=== PATIENT | female | born 1975 | race Caucasian/White ===

== ENCOUNTER 2016-09-13 21:35 | Emergency (ER) | payer MEDICAID, OTHER ==
[~2016-09-13] VITALS: Ht 149.9 cm; Wt 99.8 kg
[~2016-09-13 21:35] MED LIST: ALBMDI INH; ALPR1TAB2 PO; ALPR1TAB7 PO; AMYL1CAP58 PO; CALC500T3 PO; CARB200T PO; CHOL4PAC20 PO; CYCL-10 PO; CYM30 PO; DIVA250T34 PO; DIVA500T7 PO; FENO135C PO; FLUT1DIS INH; GLIM2TAB2 PO; HYDR-3924 PO; LEVE1000 PO; LEVE500T13 PO; LOPE2CAP PO; MULT PO; NORT50CA5 PO; OMEG1CAP55 PO; ONDA4TAB22 PO; POTA20TA83 PO; PRO40 PO; SEE LIST; TOPI100T11 PO; VITA1CAP PO
[2016-09-13 21:42] VITALS: BP_SYST 103
[2016-09-13 22:23] LABS: BASOPHILS % (AUTO) 0.6 % (0.0-2.0); EOSINOPHILS # (AUTO) 0.1 K/uL (0.0-0.4); EOSINOPHILS % (AUTO) 2.1 % (0.0-4.0); HEMATOCRIT 39.9 % (36-48); HEMOGLOBIN 13.1 g/dL (12.0-16.0); LYMPHOCYTES # (AUTO) 3.1 K/uL (1.0-5.5); LYMPHOCYTES % (AUTO) 44.2 % (20.5-51.5); MEAN CORPUSCULAR HEMOGLOBIN 31 pg (27-31); MEAN CORPUSCULAR HGB CONC 33 % (32-36); MEAN CORPUSCULAR VOLUME 94 fL (79.0-98.0); MONOCYTES # (AUTO) 0.5 K/uL (0.0-1.0); MONOCYTES % (AUTO) 7.6 % (1.7-9.3); NEUTROPHILS # (AUTO) 3.3 K/uL (1.8-7.7); NEUTROPHILS % (AUTO) 45.5 % (40.0-70.0); PLATELET COUNT (AUTO) 231 K/uL (130-430); RED BLOOD CELL COUNT(AUTO) 4.26 MIL/uL (4.2-6.2); RED CELL DISTRIBUTION WIDTH 12.4 % (9.0-15.0)
[2016-09-13 22:29] LABS: CALCIUM 8.6 mg/dL (8.4-11.0); CREATININE 0.61 mg/dL (0.55-1.30); POTASSIUM 3.6 mmol/L (3.5-5.1)
[2016-09-13 22:36] LABS: ALBUMIN 3.5 g/dL (3.4-4.8); TOTAL BILIRUBIN 0.2 mg/dL (0.0-1.0); TOTAL PROTEIN, SERUM 7.6 g/dL (6.4-8.3)
[2016-09-13] MEDS ORDERED: KETOROLAC TROMETHAMINE 30 MG VIAL IVP ONE (23:00)
[2016-09-13 23:38] LABS: BILIRUBIN,URINE NEGATIVE (NEGATIVE); BLOOD, URINE NEGATIVE (NEGATIVE); CLARITY/URINE CLEAR (CLEAR); COLOR,URINE YELLOW (YELLOW); GLUCOSE,URINE NEGATIVE (NEGATIVE); KETONES,URINE 1+ (NEGATIVE); LEUKOCYTE ESTERASE ,URINE NEGATIVE (NEGATIVE); NITRITE, URINE NEGATIVE (NEGATIVE); PROTEIN URINE NEGATIVE (NEGATIVE); UROBILINOGEN,URINE 0.2 (0.2-1.0)
[2016-09-14 00:15] VITALS: BP_SYST 108
== END 2016-09-14 00:15 | disposition home or self-care (01) ==
LOC: SED 21:35
DX: G40.909 Epilepsy, unspecified, not intractable, without status epilepticus (principal); J45.909 Unspecified asthma, uncomplicated; E11.9 Type 2 diabetes mellitus without complications; I10 Essential (primary) hypertension; Z88.0 Allergy status to penicillin; Z88.5 Allergy status to narcotic agent; Z88.8 Allergy status to other drugs, medicaments and biological substances; Z88.2 Allergy status to sulfonamides; Z91.040 Latex allergy status; Z85.3 Personal history of malignant neoplasm of breast; Z85.42 Personal history of malignant neoplasm of other parts of uterus
CPT/HCPCS: 36415; 80053; 81003; 85025; 96374; 99284; J1885

== ENCOUNTER 2020-11-01 03:15 | Inpatient (IN) | payer MEDICAID, SELFPAY ==
[~2020-11-01] VITALS: Ht 149.9 cm; Wt 97.1 kg
[2020-11-01 03:15] VITALS: BP_SYST 118
[~2020-11-01 03:15] MED LIST changes: -CYCL-10 PO; +CYCL10TA24 PO; +DIVA-74 PO; -DIVA500T7 PO; +GLIM2TAB PO; -GLIM2TAB2 PO; -HYDR-3924 PO; +HYDR-4497 PO; -LEVE500T13 PO; +LEVE500T9 PO
[2020-11-01] MEDS ORDERED: PERC10 PO (03:28)
[2020-11-01] MEDS ORDERED: NEU300 PO (03:29)
[2020-11-01] MEDS ORDERED: MECL25TA3 PO (03:36)
[2020-11-01] MEDS ORDERED: FLUO20CA41 PO (03:36)
[2020-11-01] MEDS ORDERED: METF-379 PO (03:36)
[2020-11-01] MEDS ORDERED: METO25TA6 PO (03:39)
[2020-11-01] MEDS ORDERED: NACL 0.9% 1,000 ML IV ONE (03:45)
[2020-11-01 03:51] LABS: BASOPHILS # (AUTO) 0.1 K/uL (0.0-0.2); BASOPHILS % (AUTO) 0.6 % (0.0-2.0); HEMOGLOBIN 14.3 g/dL (12.0-16.0); LYMPHOCYTES # (AUTO) 2.4 K/uL (1.0-5.5); LYMPHOCYTES % (AUTO) 15.4 % (20.5-51.5); MEAN CORPUSCULAR HEMOGLOBIN 31 pg (27-31); MEAN CORPUSCULAR HGB CONC 32 % (32-36); MEAN CORPUSCULAR VOLUME 97 fL (79.0-98.0); MONOCYTES # (AUTO) 1.5 K/uL (0.0-1.0); MONOCYTES % (AUTO) 9.5 % (1.7-9.3); NEUTROPHILS # (AUTO) 11.5 K/uL (1.8-7.7); NEUTROPHILS % (AUTO) 74.5 % (40.0-70.0); PLATELET COUNT (AUTO) 281 K/uL (130-430); RED BLOOD CELL COUNT(AUTO) 4.56 MIL/uL (4.2-6.2); RED CELL DISTRIBUTION WIDTH 14.5 % (9.0-15.0); WHITE BLOOD COUNT (AUTO) 15.5 K/uL (4.8-10.8)
[2020-11-01 03:57] LABS: CREATININE 1.99 mg/dL (0.55-1.30)
[2020-11-01] MEDS ORDERED: DOCUSATE SODIUM 100 MG CAPSULE PO PRN (09:30)
[2020-11-01] MEDS ORDERED: ACETAMINOPHEN 325 MG TABLET PO PRN (09:30)
[2020-11-01] MEDS ORDERED: ONDANSETRON HCL 4 MG/2 ML VIAL IVP PRN (09:30)
[2020-11-01] MEDS ORDERED: PIPERACILLIN/TAZOBACTAM 3.375 GM/VIAL (ZOSYN) IV ONE (09:47)
[2020-11-01 09:59] LABS: BASOPHILS # (AUTO) 0.1 K/uL (0.0-0.2); BASOPHILS % (AUTO) 0.6 % (0.0-2.0); HEMATOCRIT 39.1 % (36-48); HEMOGLOBIN 12.8 g/dL (12.0-16.0); LYMPHOCYTES # (AUTO) 2.4 K/uL (1.0-5.5); MEAN CORPUSCULAR HEMOGLOBIN 31 pg (27-31); MEAN CORPUSCULAR HGB CONC 33 % (32-36); MEAN CORPUSCULAR VOLUME 96 fL (79.0-98.0); MONOCYTES # (AUTO) 1.6 K/uL (0.0-1.0); MONOCYTES % (AUTO) 9.5 % (1.7-9.3); NEUTROPHILS # (AUTO) 12.9 K/uL (1.8-7.7); NEUTROPHILS % (AUTO) 75.9 % (40.0-70.0); PLATELET COUNT (AUTO) 252 K/uL (130-430); RED BLOOD CELL COUNT(AUTO) 4.09 MIL/uL (4.2-6.2); RED CELL DISTRIBUTION WIDTH 14.5 % (9.0-15.0)
[2020-11-01 10:13] LABS: CALCIUM 8.7 mg/dL (8.4-11.0); CREATININE 1.4 mg/dL (0.55-1.30); POTASSIUM 3.6 mmol/L (3.5-5.1)
[2020-11-01] MEDS: LORazepam 2 MG/ML VIAL IVP PRN (10:24)
[2020-11-01 10:29] LABS: ALBUMIN 2.8 g/dL (3.4-4.8); FREE T4 (FREE THYROXINE) 1.2 ng/dl (0.8-1.5); PHOSPHORUS 3.8 mg/dL (2.7-4.5); THYROID STIMULATING HORMONE 0.23 uIu/mL (0.36-3.74); TOTAL BILIRUBIN 0.4 mg/dL (0.0-1.0)
[2020-11-01] MEDS ORDERED: PIPERACILLIN/TAZO 3.375/DEX-IS 50 ML IV ONE (10:45)
[2020-11-01] MEDS: NACL 0.9% 1,000 ML IV SCH ×2 (10:46→20:18)
[2020-11-01 10:55] LABS: CKMB RELATIVE INDEX 0.2 (0.0-2.9); CREATINE KINASE MB 6.4 ng/mL (0-3.6)
[2020-11-01 13:09] VITALS: BP_SYST 140
[2020-11-01 14:16] VITALS: BP_SYST 140
[2020-11-01 15:48] VITALS: BP_SYST 149
[2020-11-01] MEDS ORDERED: CYCLOBENZAPRINE HCL 10 MG TABLET (FLEXERIL) PO PRN (17:15)
[2020-11-01] MEDS ORDERED: FLUoxetine HCL 20 MG CAPSULE (PROzac) PO ONE (17:15)
[2020-11-01] MEDS ORDERED: METOPROLOL TARTRATE 25 MG TABLET PO ONE (17:15)
[2020-11-01] MEDS: PIPERACILLIN/TAZO 3.375/DEX-IS 50 ML IV SCH (17:28)
[2020-11-01] MEDS ORDERED: MAGNESIUM SULFATE 4 GM in D5W 250 ML IV ONE (18:00)
[2020-11-01 20:00] VITALS: BP_SYST 152
[2020-11-01] MEDS: metFORMIN HCL 500 MG TABLET PO SCH (21:00)
[2020-11-01] MEDS: ALPRAZolam 0.25 MG TABLET PO SCH (23:06)
[2020-11-01] MEDS: DIVALPROEX SODIUM 500 MG TABLET( DEPAKOTE) PO SCH (23:06)
[2020-11-01] MEDS: levETIRAcetam 500 MG TABLET PO SCH (23:07)
[2020-11-01] MEDS: MECLIZINE HCL 25 MG TABLET (ANITVERT) PO SCH (23:07)
[2020-11-01] MEDS: GABAPENTIN 300 MG CAPSULE PO SCH (23:07)
[2020-11-02] VITALS: BP_SYST 153
[2020-11-02] MEDS: PIPERACILLIN/TAZO 3.375/DEX-IS 50 ML IV SCH ×3 (03:16→17:22)
[2020-11-02] MEDS: NACL 0.9% 1,000 ML IV SCH ×2 (03:19→13:55)
[2020-11-02 07:02] LABS: BASOPHILS # (AUTO) 0.2 K/uL (0.0-0.2); BASOPHILS % (AUTO) 0.9 % (0.0-2.0); EOSINOPHILS # (AUTO) 0.1 K/uL (0.0-0.4); EOSINOPHILS % (AUTO) 0.3 % (0.0-4.0); HEMATOCRIT 34.1 % (36-48); HEMOGLOBIN 11.4 g/dL (12.0-16.0); LYMPHOCYTES # (AUTO) 1.9 K/uL (1.0-5.5); LYMPHOCYTES % (AUTO) 10.8 % (20.5-51.5); MEAN CORPUSCULAR HEMOGLOBIN 32 pg (27-31); MEAN CORPUSCULAR HGB CONC 34 % (32-36); MEAN CORPUSCULAR VOLUME 95 fL (79.0-98.0); MONOCYTES # (AUTO) 0.8 K/uL (0.0-1.0); MONOCYTES % (AUTO) 4.7 % (1.7-9.3); NEUTROPHILS # (AUTO) 14.8 K/uL (1.8-7.7); NEUTROPHILS % (AUTO) 83.3 % (40.0-70.0); PLATELET COUNT (AUTO) 196 K/uL (130-430); RED CELL DISTRIBUTION WIDTH 14.8 % (9.0-15.0); WHITE BLOOD COUNT (AUTO) 17.7 K/uL (4.8-10.8)
[2020-11-02 07:39] LABS: CALCIUM 8.5 mg/dL (8.4-11.0); CREATININE 0.77 mg/dL (0.55-1.30); POTASSIUM 3.1 mmol/L (3.5-5.1)
[2020-11-02 08:47] VITALS: BP_SYST 157
[2020-11-02 09:20] LABS: CKMB RELATIVE INDEX 0.1 (0.0-2.9); CREATINE KINASE MB 1.7 ng/mL (0-3.6)
[2020-11-02] MEDS: ALPRAZolam 0.25 MG TABLET PO SCH ×2 (09:20→20:48)
[2020-11-02] MEDS: GABAPENTIN 300 MG CAPSULE PO SCH ×3 (09:20→20:47)
[2020-11-02] MEDS: levETIRAcetam 500 MG TABLET PO SCH ×2 (09:20→20:47)
[2020-11-02] MEDS: FLUoxetine HCL 20 MG CAPSULE (PROzac) PO SCH (09:20)
[2020-11-02] MEDS: MECLIZINE HCL 25 MG TABLET (ANITVERT) PO SCH ×3 (09:20→20:49)
[2020-11-02] MEDS: metFORMIN HCL 500 MG TABLET PO SCH ×2 (09:21→20:48)
[2020-11-02] MEDS: DIVALPROEX SODIUM 500 MG TABLET( DEPAKOTE) PO SCH ×2 (09:21→20:48)
[2020-11-02] MEDS: METOPROLOL TARTRATE 25 MG TABLET PO SCH (09:21)
[2020-11-02] MEDS ORDERED: KCL 40 mEq in 100 mL (PREMIX) 100 ML IV ONE (11:00)
[2020-11-02 12:06] VITALS: BP_SYST 128
[2020-11-02 16:08] VITALS: BP_SYST 127
[2020-11-02] MEDS: OXYCODONE/ACETAMINOPHEN *10*mg/325 mg TABLET PO PRN (17:17)
[2020-11-02 20:00] VITALS: BP_SYST 118
[2020-11-03] VITALS (7 sets, daily range): BP systolic 121–151
[2020-11-03] MEDS: PIPERACILLIN/TAZO 3.375/DEX-IS 50 ML IV SCH ×3 (01:39→17:02)
[2020-11-03] MEDS: NACL 0.9% 1,000 ML IV SCH ×2 (01:40→17:04)
[2020-11-03] MEDS: LORazepam 2 MG/ML VIAL IVP PRN (03:35)
[2020-11-03 03:48] LABS: BILIRUBIN,URINE NEGATIVE (NEGATIVE); CLARITY/URINE SL CLOUDY (CLEAR); COLOR,URINE YELLOW (YELLOW); GLUCOSE,URINE NEGATIVE (NEGATIVE); KETONES,URINE 1+ (NEGATIVE); LEUKOCYTE ESTERASE ,URINE NEGATIVE (NEGATIVE); NITRITE, URINE NEGATIVE (NEGATIVE); PROTEIN URINE 2+ (NEGATIVE); UROBILINOGEN,URINE 0.2 (0.2-1.0)
[2020-11-03 03:50] LABS: BLOOD, URINE TRACE (NEGATIVE)
[2020-11-03 03:59] LABS: BARBITURATE, URINE NEGATIVE (NEG <=200); BENZODIAZEPINE, URINE POSITIVE (NEG <=150); CANNABINOID, URINE NEGATIVE (NEG <=50); COCAINE, URINE NEGATIVE (NEG <=150); METHAMPHETAMINES SCREEN,URINE NEGATIVE (NEG <=500); OPIATE, URINE NEGATIVE (NEG <=100); PHENCYCLIDINE SCREEN,URINE NEGATIVE (NEG <=25); UR TRICYCLIC ANTIDEPRESSANTS POSITIVE (NEG <=300); URINE AMPHETAMINE NEGATIVE (NEG <=500); URINE METHADONE NEGATIVE (NEG <=200); URINE OXYCODONE SCREEN POSITIVE (NEG <=100); URINE PROPOXYPHENE SCREEN NEGATIVE (NEG <=300)
[2020-11-03 04:06] LABS: BACTERIA,URINE FEW /HPF (None Seen); WBC,URINE 0-3 /HPF (0-3)
[2020-11-03 06:56] LABS: BASOPHILS # (AUTO) 0.1 K/uL (0.0-0.2); BASOPHILS % (AUTO) 0.3 % (0.0-2.0); EOSINOPHILS # (AUTO) 0.1 K/uL (0.0-0.4); EOSINOPHILS % (AUTO) 0.5 % (0.0-4.0); HEMATOCRIT 31.6 % (36-48); HEMOGLOBIN 10.3 g/dL (12.0-16.0); LYMPHOCYTES # (AUTO) 1.6 K/uL (1.0-5.5); MEAN CORPUSCULAR HEMOGLOBIN 32 pg (27-31); MEAN CORPUSCULAR HGB CONC 33 % (32-36); MEAN CORPUSCULAR VOLUME 97 fL (79.0-98.0); MONOCYTES # (AUTO) 0.9 K/uL (0.0-1.0); MONOCYTES % (AUTO) 4.8 % (1.7-9.3); NEUTROPHILS # (AUTO) 15.3 K/uL (1.8-7.7); NEUTROPHILS % (AUTO) 85.4 % (40.0-70.0); PLATELET COUNT (AUTO) 190 K/uL (130-430); RED BLOOD CELL COUNT(AUTO) 3.27 MIL/uL (4.2-6.2); RED CELL DISTRIBUTION WIDTH 14.6 % (9.0-15.0); WHITE BLOOD COUNT (AUTO) 17.9 K/uL (4.8-10.8)
[2020-11-03] MEDS: levETIRAcetam 500 MG TABLET PO SCH ×2 (08:58→21:27)
[2020-11-03] MEDS: FLUoxetine HCL 20 MG CAPSULE (PROzac) PO SCH (08:59)
[2020-11-03] MEDS: ALPRAZolam 0.25 MG TABLET PO SCH ×2 (08:59→21:27)
[2020-11-03] MEDS: METOPROLOL TARTRATE 25 MG TABLET PO SCH (09:00)
[2020-11-03] MEDS: DIVALPROEX SODIUM 500 MG TABLET( DEPAKOTE) PO SCH ×2 (09:00→21:27)
[2020-11-03] MEDS: GABAPENTIN 300 MG CAPSULE PO SCH ×3 (09:00→21:27)
[2020-11-03] MEDS: MECLIZINE HCL 25 MG TABLET (ANITVERT) PO SCH ×3 (09:01→21:27)
[2020-11-03] MEDS: metFORMIN HCL 500 MG TABLET PO SCH ×2 (09:01→21:27)
[2020-11-03 09:10] LABS: CALCIUM 8.1 mg/dL (8.4-11.0); CREATININE 0.74 mg/dL (0.55-1.30); POTASSIUM 3.1 mmol/L (3.5-5.1); TOTAL BILIRUBIN 0.2 mg/dL (0.0-1.0)
[2020-11-03 09:11] LABS: PHOSPHORUS 1.5 mg/dL (2.7-4.5)
[2020-11-03] MEDS ORDERED: POTASSIUM CHLORIDE 20 MEQ TAB.PRT.SR PO ONE (15:45)
[2020-11-03] MEDS ORDERED: IPRATROPIUM/ALBUTEROL SULFATE 3 ML AMPUL.NEB (DUONEB) INH PRN (17:45)
[2020-11-04] MEDS: PIPERACILLIN/TAZO 3.375/DEX-IS 50 ML IV SCH (01:52)
[2020-11-04] MEDS: NACL 0.9% 1,000 ML IV SCH (03:41)
[2020-11-04 06:52] LABS: BASOPHILS # (AUTO) 0.1 K/uL (0.0-0.2); BASOPHILS % (AUTO) 0.6 % (0.0-2.0); EOSINOPHILS # (AUTO) 0.2 K/uL (0.0-0.4); EOSINOPHILS % (AUTO) 1.6 % (0.0-4.0); HEMATOCRIT 31.4 % (36-48); HEMOGLOBIN 10.3 g/dL (12.0-16.0); LYMPHOCYTES # (AUTO) 2.3 K/uL (1.0-5.5); MEAN CORPUSCULAR HEMOGLOBIN 32 pg (27-31); MEAN CORPUSCULAR HGB CONC 33 % (32-36); MEAN CORPUSCULAR VOLUME 97 fL (79.0-98.0); MONOCYTES # (AUTO) 0.8 K/uL (0.0-1.0); MONOCYTES % (AUTO) 6.7 % (1.7-9.3); NEUTROPHILS # (AUTO) 8.7 K/uL (1.8-7.7); NEUTROPHILS % (AUTO) 72.1 % (40.0-70.0); PLATELET COUNT (AUTO) 189 K/uL (130-430); RED BLOOD CELL COUNT(AUTO) 3.25 MIL/uL (4.2-6.2); RED CELL DISTRIBUTION WIDTH 14.6 % (9.0-15.0); WHITE BLOOD COUNT (AUTO) 12.1 K/uL (4.8-10.8)
[2020-11-04 06:58] LABS: CALCIUM 8.2 mg/dL (8.4-11.0); CREATININE 0.49 mg/dL (0.55-1.30); PHOSPHORUS 1.5 mg/dL (2.7-4.5)
[2020-11-04 08:00] VITALS: BP_SYST 138
[2020-11-04 08:31] LABS: POTASSIUM 2.6 mmol/L (3.5-5.1)
[2020-11-04] MEDS ORDERED: POTASSIUM CHLORIDE 20 MEQ/PKT PACKET PO ONE (08:45)
[2020-11-04] MEDS ORDERED: MAGNESIUM SULFATE 50 ML IV PRN (09:45)
[2020-11-04] MEDS ORDERED: ONDANSETRON HCL 4 MG/2 ML VIAL IVP PRN (09:45)
[2020-11-04] MEDS ORDERED: DOCUSATE SODIUM 100 MG CAPSULE PO PRN (09:45)
[2020-11-04] MEDS ORDERED: MUPIROCIN 2% TOPICAL OINTMENT 22 GM NS PRN (09:45)
[2020-11-04] MEDS ORDERED: POTASSIUM CHLORIDE 20 MEQ TAB.PRT.SR PO PRN (09:45)
[2020-11-04] MEDS ORDERED: ACETAMINOPHEN 325 MG TABLET PO PRN (09:45)
[2020-11-04] MEDS: DIVALPROEX SODIUM 500 MG TABLET( DEPAKOTE) PO SCH ×2 (09:53→21:12)
[2020-11-04] MEDS: metFORMIN HCL 500 MG TABLET PO SCH ×2 (09:53→21:11)
[2020-11-04] MEDS: ALPRAZolam 0.25 MG TABLET PO SCH ×2 (09:53→21:11)
[2020-11-04] MEDS: GABAPENTIN 300 MG CAPSULE PO SCH ×3 (09:53→21:12)
[2020-11-04] MEDS: levETIRAcetam 500 MG TABLET PO SCH ×2 (09:54→21:12)
[2020-11-04] MEDS: FLUoxetine HCL 20 MG CAPSULE (PROzac) PO SCH (09:54)
[2020-11-04] MEDS: MECLIZINE HCL 25 MG TABLET (ANITVERT) PO SCH ×3 (09:54→21:12)
[2020-11-04] MEDS: METOPROLOL TARTRATE 25 MG TABLET PO SCH (09:59)
[2020-11-04 12:00] VITALS: BP_SYST 122
[2020-11-04 16:00] VITALS: BP_SYST 130
[2020-11-04] MEDS ORDERED: LORazepam 2 MG/ML VIAL IM ONE (18:00)
[2020-11-04 19:30] VITALS: BP_SYST 128
[2020-11-04 20:00] VITALS: BP_SYST 132
[2020-11-04] MEDS: HEPARIN SODIUM,PORCINE 5,000 UNITS/ML VIAL SUBCUT SCH (21:21)
[2020-11-05] MEDS: NACL 0.9% 1,000 ML IV SCH ×2 (01:24→05:42)
[2020-11-05 07:15] LABS: BASOPHILS # (AUTO) 0.1 K/uL (0.0-0.2); BASOPHILS % (AUTO) 0.6 % (0.0-2.0); EOSINOPHILS # (AUTO) 0.3 K/uL (0.0-0.4); EOSINOPHILS % (AUTO) 2.5 % (0.0-4.0); HEMATOCRIT 32.9 % (36-48); HEMOGLOBIN 10.8 g/dL (12.0-16.0); LYMPHOCYTES % (AUTO) 32.2 % (20.5-51.5); MEAN CORPUSCULAR HEMOGLOBIN 32 pg (27-31); MEAN CORPUSCULAR HGB CONC 33 % (32-36); MEAN CORPUSCULAR VOLUME 96 fL (79.0-98.0); MONOCYTES % (AUTO) 8.2 % (1.7-9.3); NEUTROPHILS % (AUTO) 56.5 % (40.0-70.0); PLATELET COUNT (AUTO) 217 K/uL (130-430); RED BLOOD CELL COUNT(AUTO) 3.43 MIL/uL (4.2-6.2); RED CELL DISTRIBUTION WIDTH 14.7 % (9.0-15.0); WHITE BLOOD COUNT (AUTO) 12.3 K/uL (4.8-10.8)
[2020-11-05 07:51] LABS: ALBUMIN 2.1 g/dL (3.4-4.8); CALCIUM 8.7 mg/dL (8.4-11.0); CREATININE 0.57 mg/dL (0.55-1.30); TOTAL BILIRUBIN 0.2 mg/dL (0.0-1.0)
[2020-11-05 08:00] VITALS: BP_SYST 119
[2020-11-05 08:30] LABS: POTASSIUM 2.8 mmol/L (3.5-5.1)
[2020-11-05 08:31] LABS: BILIRUBIN,DIRECT 0.2 mg/dL (0.0-0.3)
[2020-11-05] MEDS: ALPRAZolam 0.25 MG TABLET PO SCH (08:35)
[2020-11-05] MEDS: METOPROLOL TARTRATE 25 MG TABLET PO SCH (08:36)
[2020-11-05] MEDS: FLUoxetine HCL 20 MG CAPSULE (PROzac) PO SCH (08:37)
[2020-11-05] MEDS: GABAPENTIN 300 MG CAPSULE PO SCH ×2 (08:37→15:09)
[2020-11-05] MEDS: levETIRAcetam 500 MG TABLET PO SCH (08:37)
[2020-11-05] MEDS: metFORMIN HCL 500 MG TABLET PO SCH (08:37)
[2020-11-05] MEDS: MECLIZINE HCL 25 MG TABLET (ANITVERT) PO SCH ×2 (08:38→15:09)
[2020-11-05] MEDS: DIVALPROEX SODIUM 500 MG TABLET( DEPAKOTE) PO SCH (08:38)
[2020-11-05] MEDS: HEPARIN SODIUM,PORCINE 5,000 UNITS/ML VIAL SUBCUT SCH (08:39)
[2020-11-05] MEDS ORDERED: K PHOS 30 MM in NS 250 ML IV ONE (08:45)
[2020-11-05] MEDS: PIPERACILLIN/TAZO 3.375/DEX-IS 50 ML IV SCH ×2 (10:11→17:12)
[2020-11-05] MEDS ORDERED: MAGNESIUM SULFATE 1 GM/2 ML VIAL IVP ONE (10:45)
[2020-11-05] MEDS ORDERED: MAGNESIUM SULFATE/D5W 100 ML IV SCH (11:00)
[2020-11-05 12:30] VITALS: BP_SYST 132
[2020-11-05] MEDS: OXYCODONE/ACETAMINOPHEN *10*mg/325 mg TABLET PO PRN (13:45)
[2020-11-05] MEDS ORDERED: BALSAM PERU/CASTOR OIL 60 GM OINT...G. TP ONE (15:00)
[2020-11-05 16:06] VITALS: BP_SYST 112
[2020-11-05 16:52] LABS: CALCIUM 8.7 mg/dL (8.4-11.0); CREATININE 0.66 mg/dL (0.55-1.30); PHOSPHORUS 3.2 mg/dL (2.7-4.5); POTASSIUM 3.9 mmol/L (3.5-5.1)
[2020-11-05] MEDS ORDERED: DOXY100C PO (17:17)
[2020-11-05 18:03] VITALS: BP_SYST 112
[2020-11-06] MEDS ORDERED: BALSAM PERU/CASTOR OIL 60 GM OINT...G. TP SCH (09:00)
== END 2020-11-05 18:47 | disposition home or self-care (01) | DRG 720 ==
LOC: SED 03:15 → STU 09:05
PROVIDERS: ADMIT General Practice; ATTEND General Practice
PROC: 05HY33Z Insertion of Infusion Device into Upper Vein, Percutaneous Approach (ICD-10-PCS; 2020-11-02)
PROC: B54MZZA Ultrasonography of Right Upper Extremity Veins, Guidance (ICD-10-PCS; 2020-11-02)
PROC: 05HY33Z Insertion of Infusion Device into Upper Vein, Percutaneous Approach (ICD-10-PCS; principal; 2020-11-04)
PROC: B54MZZA Ultrasonography of Right Upper Extremity Veins, Guidance (ICD-10-PCS; 2020-11-04)
DX: A41.9 Sepsis, unspecified organism (principal); N17.0 Acute kidney failure with tubular necrosis; J69.0 Pneumonitis due to inhalation of food and vomit; I50.43 Acute on chronic combined systolic (congestive) and diastolic (congestive) heart failure; E43 Unspecified severe protein-calorie malnutrition; E83.39 Other disorders of phosphorus metabolism; M62.82 Rhabdomyolysis; G40.909 Epilepsy, unspecified, not intractable, without status epilepticus; E87.0 Hyperosmolality and hypernatremia; E83.42 Hypomagnesemia; E66.9 Obesity, unspecified; E87.6 Hypokalemia; E11.9 Type 2 diabetes mellitus without complications; R09.02 Hypoxemia; I10 Essential (primary) hypertension; J45.909 Unspecified asthma, uncomplicated; K21.9 Gastro-esophageal reflux disease without esophagitis; R74.01 Elevation of levels of liver transaminase levels; Z20.822 Contact with and (suspected) exposure to COVID-19; Z68.41 Body mass index [BMI] 40.0-44.9, adult; Z88.0 Allergy status to penicillin; Z88.2 Allergy status to sulfonamides; Z88.5 Allergy status to narcotic agent; Z88.8 Allergy status to other drugs, medicaments and biological substances; Z91.041 Radiographic dye allergy status; Z91.040 Latex allergy status; Z79.899 Other long term (current) drug therapy; Z85.3 Personal history of malignant neoplasm of breast; Z85.42 Personal history of malignant neoplasm of other parts of uterus; Z85.41 Personal history of malignant neoplasm of cervix uteri; Z86.73 Personal history of transient ischemic attack (TIA), and cerebral infarction without residual deficits; I25.2 Old myocardial infarction
CPT/HCPCS: 36415; 36600; 70450-TC; 71045; 76376; 76700-TC; 76770; 80048; 80053; 80061; 80076; 80164; 80307; 81000; 82150; 82550; 82553; 82803-TC; 83036; 83690; 83735; 83880; 84100; 84439; 84443; 85025; 87040-TC; 92610-GN; 93005; 95816; 96361; 96365; 99285; G0378; G0482; J1644; J2060; J2543; J3475; J3480; J7050; J7060; J8597

== ENCOUNTER 2022-08-17 14:21 | Inpatient (IN) | payer MEDICAID ==
[~2022-08-17] VITALS: Ht 154.9 cm; Wt 95.3 kg
[~2022-08-17 14:21] MED LIST changes: -ALBMDI INH; -ALPR1TAB2 PO; -AMYL1CAP58 PO; -CALC500T3 PO; -CARB200T PO; -CHOL4PAC20 PO; -CYM30 PO; -DIVA-74 PO; +DOXY100C PO; -FENO135C PO; +FLUO20CA42 PO; -FLUT1DIS INH; -GLIM2TAB PO; -HYDR-4497 PO; -LEVE500T9 PO; -LOPE2CAP PO; +MECL25TA3 PO; +METF-379 PO; +METO25TA6 PO; -MULT PO; +NEU300 PO; -NORT50CA5 PO; -OMEG1CAP55 PO; -ONDA4TAB22 PO; -POTA20TA83 PO; -PRO40 PO; -SEE LIST; -TOPI100T11 PO; -VITA1CAP PO
--- NOTE | 2022-08-17 14:30 | NUR ---
PT BIBA AWAKE And ALTERED. AOX1. NO SOB OR DISTRESS. PT COMING FROM HOME, HER SOCIAOL WORKER VISITED HER AND NOTIVE RIGHT FACIAL DROOP AND WAS NOT ACTING NORMAL. PT SLOW TO RESPOND TO QUESTION. LAST KNOW WELL WAS 2 DAYS AGO ACCORDING TO HER SOCAIL WORKER. PT HAS HX OF HTN, HLD.
--- NOTE | 2022-08-17 14:31 | NUR ---
MD DR ARIAS AT BEDSIDE
--- NOTE | 2022-08-17 14:32 | NUR ---
MD DR ARIAS CALLED CODE STROKE
[2022-08-17] MEDS ORDERED: iohexoL 350 mgI/mL, 100 ML INFUS..BTL IV ONE (14:41)
--- NOTE | 2022-08-17 14:56 | NUR ---
PT ON TELEMEDICINE CALL WITH NEURO. +FOLLOWING DIRECTIONS
[2022-08-17 15:08] VITALS: BP_SYST 127
[2022-08-17 15:08] LABS: BASOPHILS # (AUTO) 0.1 K/uL (0.0-0.2); BASOPHILS % (AUTO) 0.7 % (0.0-2.0); EOSINOPHILS # (AUTO) 0.2 K/uL (0.0-0.4); EOSINOPHILS % (AUTO) 2.1 % (0.0-4.0); HEMATOCRIT 42.5 % (36-48); HEMOGLOBIN 14.3 g/dL (12.0-16.0); LYMPHOCYTES # (AUTO) 4.7 K/uL (1.0-5.5); LYMPHOCYTES % (AUTO) 55.4 % (20.5-51.5); MEAN CORPUSCULAR HEMOGLOBIN 33 pg (27-31); MEAN CORPUSCULAR HGB CONC 34 % (32-36); MEAN CORPUSCULAR VOLUME 97 fL (79.0-98.0); MONOCYTES % (AUTO) 11.4 % (1.7-9.3); NEUTROPHILS # (AUTO) 2.6 K/uL (1.8-7.7); NEUTROPHILS % (AUTO) 30.4 % (40.0-70.0); PLATELET COUNT (AUTO) 311 K/uL (130-430); RED BLOOD CELL COUNT(AUTO) 4.38 MIL/uL (4.2-6.2); RED CELL DISTRIBUTION WIDTH 13.9 % (9.0-15.0); WHITE BLOOD COUNT (AUTO) 8.4 K/uL (4.8-10.8)
--- NOTE | 2022-08-17 15:21 | NUR ---
PT SCORED 12 ON [facility] STROKE SCALE
[2022-08-17 15:26] LABS: ALANINE AMINOTRANSFERASE 21 U/L (12-78); ALBUMIN 3.9 g/dL (3.4-4.8); ANION GAP 14 (5-15); ASPARTATE AMINOTRANSFERASE 28 U/L (10-37); CALCIUM 9.4 mg/dL (8.4-11.0); CHLORIDE 109 mmol/L (98-107); CREATININE 0.82 mg/dL (0.55-1.30); GFR AFRICAN AMERICAN 96 mL/min (>90); GLUCOSE 90 mg/dL (70-99); TOTAL BILIRUBIN 0.2 mg/dL (0.0-1.0); UREA NITROGEN, BLOOD 13 mg/dL (8-21)
--- NOTE | 2022-08-17 17:52 | NUR ---
Admit bed requested Patient will be admitted to care of Dr. GARCIA. Admitted to MED SURGE unit. Diagnosis CVA Inpatient (Yes or No) YES Observation (Yes or No) NO Orientation concerns or request close to nursing station (Yes or No) NO Covid Status NA On vent or bipap NO Isolation requirements NO Needs a sitter NO From Home (Yes or if No enter name of facility) HOME Requires Dialysis (Yes or No) NO
[2022-08-17] MEDS ORDERED: ASPIRIN 81 MG TAB.CHEW PO ONE (18:00)
[2022-08-17] MEDS: D5/0.45 NS 1,000 ML IV SCH (18:07)
--- NOTE | 2022-08-17 18:45 | NUR ---
Patient will be admitted to care of DR GARCIA. Admitted to MS unit. Will go to room 120A. Belongings list completed. Complete and up to date summary report printed. SBAR report to be given at bedside with opportunity for questions.
[2022-08-17 22:33] VITALS: BP_SYST 136
[2022-08-17] MEDS ORDERED: FLU VACC QS2022-23(6MOS UP)/PF 0.5 ML/SYR SYRINGE I.M. PRN (23:00)
[2022-08-17 23:02] VITALS: BP_SYST 136
[2022-08-18 00:48] VITALS: BP_SYST 109
[2022-08-18] MEDS: D5/0.45 NS 1,000 ML IV SCH ×2 (04:00→14:00)
--- NOTE | 2022-08-18 06:43 | NUR ---
New IV on the right forearm.
[2022-08-18 08:32] VITALS: BP_SYST 116
[2022-08-18] MEDS ORDERED: ASPIRIN 81 MG TAB.CHEW PO SCH (09:00)
--- NOTE | 2022-08-18 09:35 | NUR ---
REPULPING SUPERVISOR CALLED AND GIVEN UPDATE HER NAME IS HAYDEE TEL NO [phone].
--- NOTE | 2022-08-18 09:35 | NUR ---
PT GOING TO MRI OF HEAD W/O CONTRAST.
--- NOTE | 2022-08-18 10:43 | NUR ---
DR GARCIA HERE AND TALKING TO PT AND PT'S ON THE PHONE.
--- NOTE | 2022-08-18 11:18 | NUR ---
BEDSIDE SWALLOW EVAL DONE, PT ABLE TO SWALLOW AND TOLERATE CLEAR LIQUIDS JUICE AND JELLO, WITH NO CHOKING OR COUGHING NOTED.
[2022-08-18 11:44] VITALS: BP_SYST 116
--- NOTE | 2022-08-18 11:44 | NUR ---
PT REFUSED EEG.
--- NOTE | 2022-08-18 16:08 | NUR ---
PT WAS SEEN FOR DYSPHAGIA. PT WAS ABLE TO SAFELY SWALLOW MS DIET WITH THIN LIQUID WITHOUT S/S OF ASPIRATION. RECOMMENDATION MS DIET WITH THIN LIQUID
[2022-08-18 18:43] VITALS: BP_SYST 140
[2022-08-18 18:55] VITALS: BP_SYST 140
--- NOTE | 2022-08-18 19:30 | NUR ---
INITIAL NOTES; endorsed pt. being discharge Dr. Frank kimble here with order. pt. aware, called her to pick her up instead Kamari careworker. called kamari and left message on her voicemail.
[2022-08-18 20:00] VITALS: BP_SYST 110
--- NOTE | 2022-08-18 21:00 | NUR ---
NOTES: discharge instruction given to pt. and verbalized understanding. called her friend Honey to pick her up tonight.
--- NOTE | 2022-08-18 21:15 | NUR ---
NOTES: pt. discharge in stable condition, removed IV on rt. ac. no neuro deficits. able to move all extremities. home via wheelchair.
== END 2022-08-18 21:20 | disposition home or self-care (01) | DRG 861 ==
LOC: SED 14:21 → SMU 17:47
PROVIDERS: ADMIT Specialist; ATTEND Specialist
DX: R41.82 Altered mental status, unspecified (principal); E11.9 Type 2 diabetes mellitus without complications; E66.9 Obesity, unspecified; I10 Essential (primary) hypertension; Z68.39 Body mass index [BMI] 39.0-39.9, adult; G47.00 Insomnia, unspecified; J45.909 Unspecified asthma, uncomplicated; G40.909 Epilepsy, unspecified, not intractable, without status epilepticus; E78.5 Hyperlipidemia, unspecified; F32.A Depression, unspecified; Z88.2 Allergy status to sulfonamides; Z88.0 Allergy status to penicillin; Z88.5 Allergy status to narcotic agent; Z91.040 Latex allergy status; T43.225A Adverse effect of selective serotonin reuptake inhibitors, initial encounter
CPT/HCPCS: 36415; 70450-TC; 70551; 76376; 80053; 82962; 83880; 84484; 84702; 85025; 85379; 92610-GN; 93005; 93880; 96360; 97163-GP; 99291; Q9967

== ENCOUNTER 2022-08-30 07:44 | Observation (INO) | payer MEDICAID ==
[~2022-08-30] VITALS: Ht 149.9 cm; Wt 108.9 kg
[~2022-08-30 07:44] MED LIST changes: -CYCL10TA24 PO; -DOXY100C PO; -NEU300 PO
[2022-08-30 07:46] VITALS: BP_SYST 130
[2022-08-30 08:52] LABS: BASOPHILS # (AUTO) 0.1 K/uL (0.0-0.2); BASOPHILS % (AUTO) 0.7 % (0.0-2.0); EOSINOPHILS # (AUTO) 0.2 K/uL (0.0-0.4); EOSINOPHILS % (AUTO) 1.5 % (0.0-4.0); HEMATOCRIT 42.9 % (36-48); LYMPHOCYTES # (AUTO) 4.8 K/uL (1.0-5.5); LYMPHOCYTES % (AUTO) 43.2 % (20.5-51.5); MEAN CORPUSCULAR HEMOGLOBIN 32 pg (27-31); MEAN CORPUSCULAR HGB CONC 33 % (32-36); MEAN CORPUSCULAR VOLUME 99 fL (79.0-98.0); MONOCYTES % (AUTO) 9.5 % (1.7-9.3); NEUTROPHILS # (AUTO) 4.9 K/uL (1.8-7.7); NEUTROPHILS % (AUTO) 45.1 % (40.0-70.0); PLATELET COUNT (AUTO) 280 K/uL (130-430); RED BLOOD CELL COUNT(AUTO) 4.35 MIL/uL (4.2-6.2)
[2022-08-30 09:02] LABS: ALANINE AMINOTRANSFERASE 17 U/L (12-78); ALBUMIN 3.8 g/dL (3.4-4.8); ANION GAP 12 (5-15); ASPARTATE AMINOTRANSFERASE 19 U/L (10-37); CALCIUM 8.9 mg/dL (8.4-11.0); CHLORIDE 107 mmol/L (98-107); CREATININE 0.85 mg/dL (0.55-1.30); GFR AFRICAN AMERICAN 92 mL/min (>90); GLUCOSE 100 mg/dL (70-99); TOTAL BILIRUBIN 0.4 mg/dL (0.0-1.0); UREA NITROGEN, BLOOD 6 mg/dL (8-21)
[2022-08-30 09:11] LABS: ALCOHOL, BLOOD < 3 mg/dL (<10)
[2022-08-30] MEDS ORDERED: NALOXONE HCL 0.4 MG/ML AMP (NARCAN) IVP ONE (09:15)
[2022-08-30 10:00] LABS: BILIRUBIN,URINE 2+ (NEGATIVE); BLOOD, URINE NEGATIVE (NEGATIVE); CLARITY/URINE CLEAR (CLEAR); COLOR,URINE YELLOW (YELLOW); GLUCOSE,URINE NEGATIVE (NEGATIVE); KETONES,URINE 2+ (NEGATIVE); LEUKOCYTE ESTERASE ,URINE NEGATIVE (NEGATIVE); NITRITE, URINE NEGATIVE (NEGATIVE); PH,URINE 6.5 (5.0-8.0); PROTEIN URINE NEGATIVE (NEGATIVE); UROBILINOGEN,URINE 0.2 (0.2-1.0)
[2022-08-30 10:24] LABS: BARBITURATE, URINE NEGATIVE (NEG <=200); BENZODIAZEPINE, URINE POSITIVE (NEG <=150); CANNABINOID, URINE NEGATIVE (NEG <=50); COCAINE, URINE NEGATIVE (NEG <=150); METHAMPHETAMINES SCREEN,URINE NEGATIVE (NEG <=500); OPIATE, URINE NEGATIVE (NEG <=100); PHENCYCLIDINE SCREEN,URINE NEGATIVE (NEG <=25); UR TRICYCLIC ANTIDEPRESSANTS POSITIVE (NEG <=300); URINE AMPHETAMINE NEGATIVE (NEG <=500); URINE METHADONE NEGATIVE (NEG <=200); URINE OXYCODONE SCREEN NEGATIVE (NEG <=100); URINE PROPOXYPHENE SCREEN NEGATIVE (NEG <=300)
[2022-08-30] MEDS ORDERED: DIPHENHYDRAMINE INJ 50 MG/ML VIAL IVP ONE (10:30)
[2022-08-30] MEDS ORDERED: HALOPERIDOL LACTATE 5 MG/ML VIAL IVP ONE (10:30)
[2022-08-30] MEDS ORDERED: NACL 0.9% 1,000 ML IV ONE (13:00)
[2022-08-30 16:20] VITALS: BP_SYST 109
[2022-08-30] MEDS: POTASSIUM CHLORIDE 10 MEQ in NACL 0.9% 1,000 ML IV SCH (17:40)
[2022-08-30] MEDS: metFORMIN HCL 500 MG TABLET PO SCH (17:40)
[2022-08-30 19:40] VITALS: BP_SYST 102
[2022-08-30] MEDS: levETIRAcetam 500 MG TABLET PO SCH (20:54)
[2022-08-30] MEDS: DIVALPROEX SODIUM 250 MG TABLET(DEPAKOTE) PO SCH (20:55)
[2022-08-31 00:21] VITALS: BP_SYST 106
[2022-08-31] MEDS: POTASSIUM CHLORIDE 10 MEQ in NACL 0.9% 1,000 ML IV SCH ×3 (03:41→20:54)
[2022-08-31] MEDS ORDERED: ACETAMINOPHEN 325 MG TABLET PO PRN (06:30)
[2022-08-31 08:42] VITALS: BP_SYST 136
[2022-08-31] MEDS: metFORMIN HCL 500 MG TABLET PO SCH ×2 (08:52→19:33)
[2022-08-31] MEDS: levETIRAcetam 500 MG TABLET PO SCH ×2 (08:53→22:39)
[2022-08-31] MEDS: DIVALPROEX SODIUM 250 MG TABLET(DEPAKOTE) PO SCH ×2 (08:53→22:39)
[2022-08-31] MEDS: METOPROLOL TARTRATE 25 MG TABLET PO SCH (08:53)
[2022-08-31 12:03] VITALS: BP_SYST 96
[2022-08-31 16:30] VITALS: BP_SYST 91
[2022-08-31] MEDS: traMADol HCL HCL 50 MG TABLET (ULTRAM) PO SCH (19:33)
[2022-08-31 19:52] VITALS: BP_SYST 126
[2022-09-01] VITALS: BP_SYST 111
[2022-09-01] MEDS: traMADol HCL HCL 50 MG TABLET (ULTRAM) PO SCH ×4 (00:18→18:10)
[2022-09-01] MEDS: POTASSIUM CHLORIDE 10 MEQ in NACL 0.9% 1,000 ML IV SCH (06:57)
[2022-09-01 08:00] VITALS: BP_SYST 120
[2022-09-01] MEDS: metFORMIN HCL 500 MG TABLET PO SCH ×2 (08:26→18:10)
[2022-09-01] MEDS: levETIRAcetam 500 MG TABLET PO SCH ×2 (08:26→20:08)
[2022-09-01] MEDS: DIVALPROEX SODIUM 250 MG TABLET(DEPAKOTE) PO SCH ×2 (08:27→20:08)
[2022-09-01] MEDS: METOPROLOL TARTRATE 25 MG TABLET PO SCH (08:27)
[2022-09-01 12:00] VITALS: BP_SYST 123
[2022-09-01] MEDS ORDERED: POTASSIUM CHLORIDE 20 MEQ TAB.PRT.SR PO ONE (15:00)
[2022-09-01 16:00] VITALS: BP_SYST 126
[2022-09-01 20:39] VITALS: BP_SYST 131
== END 2022-09-01 21:06 | disposition home or self-care (01) ==
LOC: SED 07:44 → SMU 12:17 → STU 14:17 → SMU 08-31 11:09
PROVIDERS: ADMIT Specialist; ATTEND Specialist
DX: R41.82 Altered mental status, unspecified (principal); R55 Syncope and collapse; F41.9 Anxiety disorder, unspecified; J45.909 Unspecified asthma, uncomplicated; I10 Essential (primary) hypertension; E11.9 Type 2 diabetes mellitus without complications; T42.4X5A Adverse effect of benzodiazepines, initial encounter; Z85.3 Personal history of malignant neoplasm of breast; Z88.0 Allergy status to penicillin; Z85.41 Personal history of malignant neoplasm of cervix uteri; Z85.42 Personal history of malignant neoplasm of other parts of uterus; Z86.73 Personal history of transient ischemic attack (TIA), and cerebral infarction without residual deficits; Z79.899 Other long term (current) drug therapy
CPT/HCPCS: 96361 ×2; 96374; 80307; 80053; 83037; 85025; 84484; 36415; 93005; 71045; 70450; 76376; 99291; 87491; 81003; G0482; J2310; J3480 ×3; J7030 ×3; G0378 ×3; J1200; J1630

== ENCOUNTER 2023-11-06 20:49 | Inpatient (IN) | payer MEDICAID ==
[~2023-11-06] VITALS: Ht 149.9 cm; Wt 89.1 kg
[~2023-11-06 20:49] MED LIST changes: +ALPR1TAB2 PO; -ALPR1TAB7 PO; +CARB200C4 PO; +DIVA-74 PO; +FLUO-408 PO; -FLUO20CA42 PO; +HYDR-3925 PO; -MECL25TA3 PO; +TOPI200T PO
[2023-11-06 21:10] VITALS: BP_SYST 178; PULSE 96; RESP 18; TEMP 97.2; O2SAT 98
[2023-11-06] MEDS ORDERED: LEVE750T4 PO (21:50)
[2023-11-06 21:54] LABS: BASOPHILS # (AUTO) 0.1 K/uL (0.0-0.2); BASOPHILS % (AUTO) 0.7 % (0.0-2.0); EOSINOPHILS # (AUTO) 1.1 K/uL (0.0-0.4); EOSINOPHILS % (AUTO) 11.1 % (0.0-4.0); HEMATOCRIT 39.9 % (36-48); HEMOGLOBIN 13.3 g/dL (12.0-16.0); LYMPHOCYTES # (AUTO) 4.4 K/uL (1.0-5.5); LYMPHOCYTES % (AUTO) 44.5 % (20.5-51.5); MEAN CORPUSCULAR HEMOGLOBIN 33 pg (27-31); MEAN CORPUSCULAR HGB CONC 33 % (32-36); MEAN CORPUSCULAR VOLUME 97 fL (79.0-98.0); MONOCYTES # (AUTO) 1.1 K/uL (0.0-1.0); MONOCYTES % (AUTO) 10.9 % (1.7-9.3); NEUTROPHILS # (AUTO) 3.3 K/uL (1.8-7.7); NEUTROPHILS % (AUTO) 32.8 % (40.0-70.0); RED BLOOD CELL COUNT(AUTO) 4.11 MIL/uL (4.2-6.2); RED CELL DISTRIBUTION WIDTH 14.6 % (9.0-15.0); WHITE BLOOD COUNT (AUTO) 9.9 K/uL (4.8-10.8)
[2023-11-06] MEDS: ONDANSETRON HCL 4 MG/2 ML VIAL IVP ONE (22:04)
[2023-11-06] MEDS: levETIRAcetam 750 MG in NS 100 ML IV ONE (22:05)
[2023-11-06] MEDS: LORazepam 2 MG/ML VIAL IVP ONE (22:05)
[2023-11-06 22:17] LABS: VALPROIC ACID 70 ug/mL (50-100)
[2023-11-06 22:23] LABS: PLATELET COUNT (AUTO) 214 K/uL (130-430)
[2023-11-06 22:24] LABS: INFLUENZA TYPE A Negative (NEGATIVE); INFLUENZA TYPE B NEGATIVE (NEGATIVE)
[2023-11-06 22:29] LABS: ANION GAP 14 (5-15); CALCIUM 8.5 mg/dL (8.4-11.0); CARBON DIOXIDE 20 mmol/L (23-29); CHLORIDE 108 mmol/L (98-107); GFR AFRICAN AMERICAN 114 mL/min (>90); GLUCOSE 105 mg/dL (74-106); POTASSIUM 4.1 mmol/L (3.5-5.1); SODIUM SERUM 142 mmol/L (136-145); UREA NITROGEN, BLOOD 5 mg/dL (8-21)
[2023-11-06 22:32] LABS: GFR NON AFRICAN-AMERICAN 94 mL/min (>90)
[2023-11-07] MEDS: LORazepam 2 MG/ML VIAL IVP PRN (01:19)
[2023-11-07 01:39] VITALS: BP_SYST 114; PULSE 88; RESP 20; TEMP 97.3; O2SAT 98
[2023-11-07] MEDS ORDERED: ALBUTEROL SULFATE 0.083% 2.5 MG/3 ML VIAL.NEB INH PRN (04:15)
[2023-11-07 04:23] VITALS: BP_SYST 114; PULSE 88; O2SAT 98
[2023-11-07 05:07] LABS: CARBAMAZEPINE (TEGRETOL) 6 ug/mL (4-12)
[2023-11-07 07:57] VITALS: BP_SYST 139; PULSE 91; RESP 18; TEMP 98.6; O2SAT 96
[2023-11-07] MEDS ORDERED: levETIRAcetam 500 MG TABLET PO SCH (09:45)
[2023-11-07] MEDS ORDERED: ONDANSETRON HCL 4 MG/2 ML VIAL IVP PRN (09:45)
[2023-11-07] MEDS ORDERED: CARBAMAZEPINE PO SCH (09:45)
[2023-11-07] MEDS ORDERED: ACETAMINOPHEN 325 MG TABLET PO PRN ×2 (09:45→10:15)
[2023-11-07] MEDS ORDERED: guaiFENesin/DEXTROMETHORPHAN 118 ML PO PRN (10:00)
[2023-11-07] MEDS: TOPIRAMATE 100 MG TABLET(Topamax) PO ONE (10:10)
[2023-11-07] MEDS: DIVALPROEX SODIUM 500 MG TABLET( DEPAKOTE) PO ONE (10:10)
[2023-11-07] MEDS: guaiFENesin/DEXTROMETHORPHAN 10 ML UDC PO PRN (11:01)
[2023-11-07] MEDS: METOPROLOL TARTRATE 25 MG TABLET PO ONE (11:02)
[2023-11-07 11:21] LABS: BASOPHILS # (AUTO) 0.1 K/uL (0.0-0.2); EOSINOPHILS # (AUTO) 0.8 K/uL (0.0-0.4); EOSINOPHILS % (AUTO) 9.3 % (0.0-4.0); HEMATOCRIT 41.5 % (36-48); HEMOGLOBIN 13.1 g/dL (12.0-16.0); LYMPHOCYTES % (AUTO) 48.7 % (20.5-51.5); MEAN CORPUSCULAR HEMOGLOBIN 31 pg (27-31); MEAN CORPUSCULAR HGB CONC 32 % (32-36); MEAN CORPUSCULAR VOLUME 99 fL (79.0-98.0); MONOCYTES # (AUTO) 0.7 K/uL (0.0-1.0); MONOCYTES % (AUTO) 8.8 % (1.7-9.3); NEUTROPHILS # (AUTO) 2.6 K/uL (1.8-7.7); NEUTROPHILS % (AUTO) 32.2 % (40.0-70.0); PLATELET COUNT (AUTO) 308 K/uL (130-430); RED BLOOD CELL COUNT(AUTO) 4.19 MIL/uL (4.2-6.2); RED CELL DISTRIBUTION WIDTH 14.2 % (9.0-15.0); WHITE BLOOD COUNT (AUTO) 8.1 K/uL (4.8-10.8)
[2023-11-07 11:32] LABS: CALCIUM 8.7 mg/dL (8.4-11.0); CREATININE 0.84 mg/dL (0.55-1.30); POTASSIUM 3.6 mmol/L (3.5-5.1)
[2023-11-07 12:00] VITALS: BP_SYST 141; PULSE 107; RESP 18; TEMP 97.5; O2SAT 95
[2023-11-07] MEDS: LOPERAMIDE HCL 2 MG CAPSULE PO PRN (12:43)
[2023-11-07] MEDS: ALPRAZolam 0.25 MG TABLET PO ONE (13:30)
[2023-11-07] MEDS: NORMAL SALINE 5 ML DISP.SYRIN IVF SCH (14:00)
[2023-11-07 15:47] VITALS: BP_SYST 147; PULSE 96; RESP 18; TEMP 98; O2SAT 98
[2023-11-07 20:05] VITALS: BP_SYST 142; PULSE 78; RESP 18; TEMP 97.7; O2SAT 98
[2023-11-07] MEDS: ALPRAZolam 0.25 MG TABLET PO SCH (21:06)
[2023-11-07] MEDS: metFORMIN HCL 500 MG TABLET PO SCH (21:07)
[2023-11-07] MEDS: DIVALPROEX SODIUM 500 MG TABLET( DEPAKOTE) PO SCH (21:07)
[2023-11-07] MEDS: TOPIRAMATE 100 MG TABLET(Topamax) PO SCH (21:07)
[2023-11-07] MEDS: levETIRAcetam 500 MG in NS 100 ML IV SCH (21:08)
[2023-11-07] MEDS: INSULIN REGULAR, HUMAN 100 UNITS/ML, 3 ML VIAL (humuLIN R) SUBCUT PRN (21:10)
[2023-11-08] VITALS: BP_SYST 112; PULSE 91; RESP 18; TEMP 97.3; O2SAT 96
[2023-11-08 04:29] VITALS: PULSE 82
[2023-11-08] MEDS ORDERED: HYDROcodone/ACETAMIN 5-325 MG TAB (NORCO/ VICODIN) PO PRN (05:15)
[2023-11-08] MEDS ORDERED: NALOXONE HCL 0.4 MG/ML AMP (NARCAN) IVP PRN ×2 (05:15)
[2023-11-08] MEDS: HYDROcodone/ACETAMIN 10-325 MG TAB PO PRN (05:48)
[2023-11-08 08:09] LABS: BASOPHILS # (AUTO) 0.1 K/uL (0.0-0.2); BASOPHILS % (AUTO) 0.8 % (0.0-2.0); EOSINOPHILS # (AUTO) 0.6 K/uL (0.0-0.4); EOSINOPHILS % (AUTO) 7.3 % (0.0-4.0); HEMATOCRIT 38.1 % (36-48); HEMOGLOBIN 12.2 g/dL (12.0-16.0); LYMPHOCYTES # (AUTO) 4.4 K/uL (1.0-5.5); LYMPHOCYTES % (AUTO) 49.7 % (20.5-51.5); MEAN CORPUSCULAR HEMOGLOBIN 32 pg (27-31); MEAN CORPUSCULAR HGB CONC 32 % (32-36); MEAN CORPUSCULAR VOLUME 98 fL (79.0-98.0); MONOCYTES # (AUTO) 0.7 K/uL (0.0-1.0); MONOCYTES % (AUTO) 8.2 % (1.7-9.3); PLATELET COUNT (AUTO) 283 K/uL (130-430); RED BLOOD CELL COUNT(AUTO) 3.87 MIL/uL (4.2-6.2); RED CELL DISTRIBUTION WIDTH 14.3 % (9.0-15.0); WHITE BLOOD COUNT (AUTO) 8.9 K/uL (4.8-10.8)
[2023-11-08 08:11] VITALS: BP_SYST 128; PULSE 72; RESP 18; TEMP 96.6; O2SAT 96
[2023-11-08] MEDS: FLUoxetine HCL 20 MG CAPSULE (PROzac) PO SCH (08:21)
[2023-11-08] MEDS: METOPROLOL TARTRATE 25 MG TABLET PO SCH (08:22)
[2023-11-08 08:49] LABS: ALBUMIN 2.8 g/dL (3.4-4.8); CALCIUM 8.5 mg/dL (8.4-11.0); CREATININE 0.73 mg/dL (0.55-1.30); POTASSIUM 3.9 mmol/L (3.5-5.1); TOTAL PROTEIN, SERUM 6.6 g/dL (6.4-8.3)
[2023-11-08] MEDS: LORazepam 2 MG/ML VIAL ONE (09:26)
[2023-11-08 09:35] LABS: TOTAL BILIRUBIN 0.1 mg/dL (0.0-1.0)
[2023-11-08 11:10] VITALS: BP_SYST 128; PULSE 80; RESP 16; TEMP 96.7; O2SAT 96
[2023-11-08 15:05] VITALS: BP_SYST 122; PULSE 82; RESP 15; TEMP 96.7; O2SAT 98
[2023-11-08 20:00] VITALS: BP_SYST 137; PULSE 91; RESP 16; TEMP 97.1; O2SAT 97
[2023-11-08] MEDS: levETIRAcetam 500 MG IV PREMIX 100 ML IV SCH (20:26)
[2023-11-09 00:09] VITALS: BP_SYST 128; PULSE 73; RESP 15; TEMP 97.3; O2SAT 96
[2023-11-09 07:12] LABS: BASOPHILS # (AUTO) 0.1 K/uL (0.0-0.2); BASOPHILS % (AUTO) 0.8 % (0.0-2.0); EOSINOPHILS # (AUTO) 0.6 K/uL (0.0-0.4); EOSINOPHILS % (AUTO) 6.1 % (0.0-4.0); HEMATOCRIT 38.3 % (36-48); HEMOGLOBIN 12.4 g/dL (12.0-16.0); LYMPHOCYTES # (AUTO) 5.6 K/uL (1.0-5.5); LYMPHOCYTES % (AUTO) 53.3 % (20.5-51.5); MEAN CORPUSCULAR HEMOGLOBIN 32 pg (27-31); MEAN CORPUSCULAR HGB CONC 32 % (32-36); MEAN CORPUSCULAR VOLUME 99 fL (79.0-98.0); MONOCYTES # (AUTO) 0.5 K/uL (0.0-1.0); NEUTROPHILS # (AUTO) 3.6 K/uL (1.8-7.7); NEUTROPHILS % (AUTO) 34.8 % (40.0-70.0); PLATELET COUNT (AUTO) 299 K/uL (130-430); RED BLOOD CELL COUNT(AUTO) 3.88 MIL/uL (4.2-6.2); RED CELL DISTRIBUTION WIDTH 14.2 % (9.0-15.0); WHITE BLOOD COUNT (AUTO) 10.5 K/uL (4.8-10.8)
[2023-11-09 07:17] LABS: CALCIUM 8.3 mg/dL (8.4-11.0); CREATININE 0.67 mg/dL (0.55-1.30); POTASSIUM 3.6 mmol/L (3.5-5.1)
[2023-11-09 08:40] VITALS: BP_SYST 145; PULSE 84; RESP 17; TEMP 96.1; O2SAT 97
[2023-11-09 12:41] VITALS: BP_SYST 124; PULSE 92; RESP 18; TEMP 97.4; O2SAT 96
[2023-11-09 12:47] VITALS: BP_SYST 124; PULSE 92; RESP 16; TEMP 97.4; O2SAT 96
== END 2023-11-09 13:40 | disposition home or self-care (01) | DRG 53 ==
LOC: SED 20:49 → STU 11-07 00:02
PROVIDERS: ADMIT Preventive Medicine Preventive Medicine/Occupational Environmental Medicine; ATTEND Preventive Medicine Preventive Medicine/Occupational Environmental Medicine
DX: G40.909 Epilepsy, unspecified, not intractable, without status epilepticus (principal); E83.51 Hypocalcemia; R65.10 Systemic inflammatory response syndrome (SIRS) of non-infectious origin without acute organ dysfunction; E11.9 Type 2 diabetes mellitus without complications; J45.909 Unspecified asthma, uncomplicated; I25.10 Atherosclerotic heart disease of native coronary artery without angina pectoris; F43.10 Post-traumatic stress disorder, unspecified; Z20.822 Contact with and (suspected) exposure to COVID-19; F31.9 Bipolar disorder, unspecified; I10 Essential (primary) hypertension; Z86.73 Personal history of transient ischemic attack (TIA), and cerebral infarction without residual deficits; Z85.42 Personal history of malignant neoplasm of other parts of uterus; Z85.41 Personal history of malignant neoplasm of cervix uteri; Z85.3 Personal history of malignant neoplasm of breast; I25.2 Old myocardial infarction; Z79.899 Other long term (current) drug therapy; Z88.0 Allergy status to penicillin; Z88.8 Allergy status to other drugs, medicaments and biological substances
CPT/HCPCS: 36415; 70450-TC; 71045; 80048; 80053; 80156; 80164; 82948; 83880; 84484; 85025; 93005; 95816; 96365; 97116-GP; 97530-GP; 99285; G0378; J1953; J2060; J2405